=== PATIENT | male | born 1950 | race Native Hawaiian/Other Pacific Islander ===

== ENCOUNTER 2021-11-07 08:37 | Outpatient (CLI) | payer OTHER | END 2021-11-07 21:47 | disposition home or self-care (01) | LOC: CT 08:37 | PROVIDERS: ATTEND Internal Medicine | DX: F17.210 Nicotine dependence, cigarettes, uncomplicated (principal); R06.02 Shortness of breath; J44.9 Chronic obstructive pulmonary disease, unspecified | CPT/HCPCS: 36415; 82565; 84520; Q9963 ==